=== PATIENT | male | born 1940 | race Caucasian/White ===

== ENCOUNTER 2021-08-25 19:47 | Inpatient (IN) ==
--- NOTE | 2021-08-25 19:50 | ED.PDOC ---
General ED Provider: Dr. KALEIGH LOPEZ Chief Complaint: Altered Mental Status Stated Complaint: From shelter, DNR, his provider there is Dr. Montoya. He has had some fever there, some cough, confusion, they did a COVID test at [facility] today, negative. He has dementia and chronic A-fib hx Time Seen by Provider: 08/25/21 19:50 Mode of Arrival: Ambulance Information Source: Patient and Family (daughter) Exam Limitations: Clinical condition and Dementia [facility] and Triage Documentation Reviewed and Agree: Yes Does patient meet sepsis criteria?: No System Inflammatory Response Syndrome: Not Applicable Sepsis Protocol: For patient's 13 years and over: Temp is 96.8 and below OR 101 and greater Pulse >90 BPM Resp >20/minute Acutely Altered Mental Status Are patient's symptoms suggestive of a new infection, such as: -Pneumonia -Skin, Soft Tissue -Endocarditis -UTI -Bone, Joint Infection -Implantable Device -Acute Abdominal Infection -Wound Infection -Meningitis -Blood Stream Catheter Infection -Unknown Neurological Complaint Exam Altered Mental Status Complaint/Exam Current Mental Status: Confusion Last Known Well: at his baseline , which includes dementia, yesterday Onset: Gradual Duration: one day Symptoms Are: Still present Timing: Constant Initial Severity: Moderate Current Severity: Moderate Eye Deviation Present: No Character: Reports Confusion Aggravating: Reports Unknown Alleviating: Reports None Associated Signs and Symptoms: Reports Fever and Illness Cardiac Risk Factors: Reports Hypertension and Family history CVA Risk Factors: Reports Hypertension Related Surgical History: Reports None Carotid Bruit Present: No Glascow Coma Scale (see protocol): 11 Nystagmus Present: No Gag Reflex Present: Yes Meningeal Signs Positive: No Focal Weakness: Present None Focal Sensory Loss: Present None Gait: Unable Review of Systems Review Of Systems Constitutional: Reports Fever and Malaise Eyes: Reports No symptoms Ears, Nose, Mouth, Throat: Reports No symptoms Respiratory: Reports Cough Cardiac: Reports No symptoms GI: Reports Diarrhea : Reports No symptoms Musculoskeletal: Reports No symptoms Skin: Reports No symptoms Neurological: Reports No symptoms Endocrine: Reports No symptoms Hematologic/Lymphatic: Reports No symptoms All Other Systems: Reviewed and Negative [facility] Medical History (Updated 08/26/21 @ 05:18 by SPENCER RANDHAWA RN) CAD (coronary artery disease) of artery bypass graft Dementia Depression GERD (gastroesophageal reflux disease) Hyperlipemia Hypertension Family History (Updated 08/26/21 @ 05:21 by SPENCER RANDHAWA RN) FATHER Tuberculosis Social History (Updated 08/26/21 @ 05:21 by SPENCER RANDHAWA RN) Smoking and tobacco status: Former smoker Tobacco: How many years used: 20 How long ago did patient quit smokin year ago Physical Exam Physical Exam Appearance: Reports Ill-appearing and Obese Ill-appearing: Moderate Pain Distress: None Eyes: Reports KYLE ENT: Reports Oropharynx normal and Dry mucosa Neck: Supple Respiratory: Reports Airway patent, Breath sounds diminished and Rhonchi Cardiovascular: Reports Irregular rhythm and Tachycardia GI/: Reports Soft and Nontender Musculoskeletal: Reports Limited ROM and Limited strength Skin: Reports Warm and Dry Neurological: Reports Sensation intact, Motor intact and Alert to verbal Psychiatric: Reports Affect appropriate, Mood appropriate and Other (very limi cass exam) Interpretation Radiology Interpretation Radiology Interpretation By: Radiologist Radiology Interpretation By: Radiologist Radiology Results: Positive Exam Interpreted: Portable CXR Xray Comments: Bibas atelec vs infiltrate EKG Interpretation Time of EKG #1: 20:22 Rate: Tachy Rhythm: Other (a-fib) Ectopy: PVCs Thompson: NL ST Segment: Normal Re-Evaluation Re-Evaluation Time of Re-Evaluation: 03:00 Status: Improved Vital Signs Stable: Yes Pain Level: No pain. Lungs: Other (rhonchi) Skin: Warm and Dry Neuro: Other (dementia, confusion) CV: RRR Additional Comments: Kept in ER several hours to hydrate. BUN and creat elevated, lactate elevated which likely represents dehydration, but sepsis cannot be excluded. Cultures, 2 abx, his last episode of diarrhea, just before going to med-surg, was reported to have a bit of blood possibly, will add abd/pel CT to orders for the floor. Critical Care Note Critical Care Note Total Critical Care Time (mins): 30 Comments: CC for acute management of respiratory distress and dehydration Course Course Hematology/Chemistry: 08/25/21 20:31 08/26/21 05:55 Orders, Labs, Meds: Lab Review 08/25/21 08/25/21 08/25/21 20:31 20:31 20:31 WBC 19.32 H RBC 4.79 Hgb 14.9 Hct 43.9 MCV 91.6 MCH 31.1 H MCHC 33.9 RDW Coeff of Keila 14.3 Plt Count 215 Immature Gran % (Auto) 0.4 Neut % (Auto) 91.1 H Lymph % (Auto) 2.3 L Gates % (Auto) 6.0 Eos % (Auto) 0.0 Baso % (Auto) 0.2 Neut # (Auto) 17.6 H Lymph # (Auto) 0.5 L Gates # (Auto) 1.2 Eos # (Auto) 0.0 Baso # (Auto) 0.0 Immature Gran # (Auto) 0.1 Sodium 136.3 Potassium 4.46 Chloride 106.0 Carbon Dioxide 14.5 L Anion Gap 20.26 BUN 72.4 H* Creatinine 2.83 H Estimated GFR (MDRD) 22.00 BUN/Creatinine Ratio 25.58 Glucose 156.8 H Lactic Acid Calcium 9.41 Magnesium 2.13 Total Bilirubin 1.67 H AST 33.5 ALT 23.7 Alkaline Phosphatase 182.8 H Troponin I < 0.012 NT-Pro-B Natriuret Pep 652.000 H Total Protein 6.89 Albumin 3.75 Globulin 3.14 Albumin/Globulin Ratio 1.19 SARS CoV-2 RNA Rapid PARDEEP 08/25/21 08/25/21 08/25/21 22:15 22:48 22:48 WBC RBC Hgb Hct MCV MCH MCHC RDW Coeff of Keila Plt Count Immature Gran % (Auto) Neut % (Auto) Lymph % (Auto) Gates % (Auto) Eos % (Auto) Baso % (Auto) Neut # (Auto) Lymph # (Auto) Gates # (Auto) Eos # (Auto) Baso # (Auto) Immature Gran # (Auto) Sodium 137.7 Potassium 4.07 Chloride 104.0 Carbon Dioxide 17.9 L Anion Gap 19.87 BUN 73.5 H* Creatinine 2.58 H Estimated GFR (MDRD) 24.00 BUN/Creatinine Ratio 28.48 Glucose 135.5 H Lactic Acid 3.30 H Calcium 9.24 Magnesium Total Bilirubin AST ALT Alkaline Phosphatase Troponin I NT-Pro-B Natriuret Pep Total Protein Albumin Globulin Albumin/Globulin Ratio SARS CoV-2 RNA Rapid PARDEEP Negative 08/26/21 08/26/21 03:20 03:20 WBC RBC Hgb Hct MCV MCH MCHC RDW Coeff of Keila Plt Count Immature Gran % (Auto) Neut % (Auto) Lymph % (Auto) Gates % (Auto) Eos % (Auto) Baso % (Auto) Neut # (Auto) Lymph # (Auto) Gates # (Auto) Eos # (Auto) Baso # (Auto) Immature Gran # (Auto) Sodium 136.4 Potassium 4.58 Chloride 104.2 Carbon Dioxide 19.0 L Anion Gap 17.78 BUN 75.9 H* Creatinine 2.47 H Estimated GFR (MDRD) 25.00 BUN/Creatinine Ratio 30.72 Glucose 152.1 H Lactic Acid 2.99 H Calcium 9.07 Magnesium Total Bilirubin AST ALT Alkaline Phosphatase Troponin I NT-Pro-B Natriuret Pep Total Protein Albumin Globulin Albumin/Globulin Ratio SARS CoV-2 RNA Rapid PARDEEP Orders Category Date Time Status ADMIT PATIENT INPATIENT .TO MEDSURG (MONITORED BED) ADMISSION 08/26/21 03:46 Active EKG-(ED ONLY) Stat CARDIO 08/25/21 20:16 Completed ACTIVITY 1-3XD CARE 08/26/21 03:51 Active INTAKE & OUTPUT Q8HR CARE 08/26/21 03:52 Completed IP: INSERT SALINE LOCK ONCE CARE 08/26/21 03:52 Active TELEMETRY MONITORING TELE CARE 08/26/21 03:46 Active VITAL SIGNS Q8HR CARE 08/26/21 03:52 Active CARDIAC DIET DIETARY 08/26/21 Breakfast Ordered BASIC METABOLIC PANEL DAILY@0600 LAB 08/26/21 05:55 Completed BASIC METABOLIC PANEL DAILY@0600 LAB 08/27/21 06:00 Ordered BASIC METABOLIC PANEL Stat LAB 08/25/21 22:48 Completed BASIC METABOLIC PANEL Stat LAB 08/26/21 03:20 Completed BLOOD CULTURE (ED ONLY) Stat LAB 08/25/21 22:48 Received CBC W/ AUTO DIFF DAILY@0600 LAB 08/26/21 05:55 Received CBC W/ AUTO DIFF DAILY@0600 LAB 08/27/21 06:00 Ordered CBC W/ AUTO DIFF Stat LAB 08/25/21 20:31 Completed COMPREHENSIVE METABOLIC PANEL Stat LAB 08/25/21 20:31 Completed LACTIC ACID Stat LAB 08/25/21 22:48 Completed LACTIC ACID Stat LAB 08/26/21 03:20 Completed MAGNESIUM Stat LAB 08/25/21 20:31 Completed NT-PROBNP Stat LAB 08/25/21 20:31 Completed SARS COV-2 RNA RAPID PARDEEP Stat LAB 08/25/21 22:15 Completed TROPONIN I Stat LAB 08/25/21 20:31 Completed Alfuzosin HCl [Uroxatral] MEDS 08/26/21 09:00 Active 10 mg PO DAILY Aspirin [Aspirin EC] MEDS 08/26/21 09:00 Active 81 mg PO DAILY Atorvastatin Calcium [Lipitor] MEDS 08/26/21 21:00 Active 40 mg PO BEDTIME Azithromycin Inj [Zithromax] 500 mg MEDS 08/26/21 03:57 Discontinued 0.9 % Sodium Chloride [Sodium Chloride] 250 ml IV ONCE Ceftriaxone/D5w 1 gm Premix [Rocephin 1 gm/50 ml D5w] MEDS 08/26/21 09:00 Active 1 gm in 50 ml IV DAILY Ceftriaxone/D5w 1 gm Premix [Rocephin 1 gm/50 ml D5w] MEDS 08/25/21 23:31 Discontinued 1 gm in 50 ml IV ONCE Enoxaparin Sodium [Lovenox] MEDS 08/26/21 09:00 Active 40 mg SUBCUT DAILY Furosemide [Lasix Tab] MEDS 08/26/21 09:00 Active 40 mg PO DAILY Mirtazapine [Remeron] MEDS 08/26/21 21:00 Active 7.5 mg PO BEDTIME Nitroglycerin [Nitrostat] MEDS 08/26/21 03:59 Active 0.4 mg SL Q5M PRN Quetiapine Fumarate [Seroquel] MEDS 08/26/21 09:00 Active 12.5 mg PO BID Ringers Lactated Solution [Lactated Ringers] 1,000 ml MEDS 08/25/21 20:17 Discontinued IV BOLUS Ringers Lactated Solution [Lactated Ringers] 1,000 ml MEDS 08/25/21 21:42 Discontinued IV BOLUS Sodium Chloride 0.9% [Sodium Chloride] 1,000 ml MEDS 08/26/21 04:00 Active IV 125 mls/hr Sodium Chloride 0.9% [Sodium Chloride] 1,000 ml MEDS 08/25/21 23:31 Discontinued IV BOLUS RESUSCITATION STATUS Routine OTHERS 08/26/21 03:51 Ordered CHEST, 1V AP ONLY Stat RADS 08/25/21 20:16 Completed Medications Generic Name Dose Route Start Last Admin Trade Name Freq PRN Reason Stop Dose Admin Alfuzosin HCl 10 mg 08/26/21 09:00 Alfuzosin Hcl 10 Mg Tab.Er.24h PO DAILY BRIAN Aspirin 81 mg 08/26/21 09:00 Aspirin 81 Mg Tablet.Dr PO DAILY BRIAN Atorvastatin Calcium 40 mg 08/26/21 21:00 Atorvastatin Calcium 20 Mg Tablet PO BEDTIME BRIAN Enoxaparin Sodium 40 mg 08/26/21 09:00 Enoxaparin Sodium 40 Mg/0.4 Ml Syr SUBCUT DAILY BRIAN Furosemide 40 mg 08/26/21 09:00 Furosemide 40 Mg Tablet PO DAILY [facility] Sodium Chloride 1,000 mls @ 125 mls/hr 08/26/21 04:00 08/26/21 05:25 Sodium Chloride IV 125 mls/hr .Q8H BRIAN Administration CEFTRIAXONE/D5W 1 GM PREMIX 1 gm in 50 mls @ 75 mls/hr 08/26/21 09:00 Rocephin 1 Gm/50 Ml D5w IV 08/29/21 08:59 DAILY BRIAN Mirtazapine 7.5 mg 08/26/21 21:00 Mirtazapine 15 Mg Tablet PO BEDTIME BRIAN Nitroglycerin 0.4 mg 08/26/21 03:59 Nitroglycerin 0.4 Mg Tab.Subl SL Q5M PRN Chest Pain Quetiapine Fumarate 12.5 mg 08/26/21 09:00 Quetiapine Fumarate 25 Mg Tablet PO BID BRIAN Discontinued Medications Generic Name Dose Route Start Last Admin Trade Name Freq PRN Reason Stop Dose Admin Lactated Ringer's 1,000 mls @ 1,000 mls/hr 08/25/21 20:17 08/25/21 20:23 Lactated Ringers IV 08/25/21 21:16 1,000 mls/hr BOLUS STA Administration Lactated Ringer's 1,000 mls @ 1,000 mls/hr 08/25/21 21:42 08/25/21 21:43 Lactated Ringers IV 08/25/21 22:41 1,000 mls/hr BOLUS STA Administration Sodium Chloride 1,000 mls @ 1,000 mls/hr 08/25/21 23:31 08/26/21 01:12 Sodium Chloride IV 08/26/21 00:30 1,000 mls/hr BOLUS STA Administration CEFTRIAXONE/D5W 1 GM PREMIX 1 gm in 50 mls @ 75 mls/hr 08/25/21 23:31 08/25/21 23:43 Rocephin 1 Gm/50 Ml D5w IV 08/26/21 00:10 75 mls/hr ONCE ONE Administration Azithromycin 500 mg/ Sodium 250 mls @ 125 mls/hr 08/26/21 03:57 Chloride IV 08/26/21 05:56 ONCE ONE Vital Signs: Temp Pulse Resp BP Pulse Ox 08/26/21 04:28 120 H 20 103/60 08/25/21 19:52 98.3 F 120 H 20 102/60 97 Discharge Plan Discharge ED Provider: KALEIGH LOPEZ Physician Progress Note: [Multiple problems. DNR patient with dementia. Mild pneumonia , sat good on RA. Elevated WBC from that. Dehydrated with BUN in 70's and creat in 2 plus range. Lactate is elevated, which can be from dehydrdation, but cannot exclude sepsis. Blood cultures pending. Evidently, UA not obtained, add that and CT abd/pel. Hx A-fib, but EKG is sinus. His daughter is here and is advised of all this. Holding BP med and lasix for now until hydrated more and BP is increased.]
[2021-08-25] MEDS ORDERED: LACTATED RINGERS 1,000 ML IV STA ×2 (20:17→21:42)
[2021-08-25 20:36] LABS: BASOPHILS % (AUTO) 0.2 % (0.0-3.0); HEMATOCRIT 43.9 % (42.0-52.0); HEMOGLOBIN 14.9 g/dl (14.0-18.0); IMMATURE GRANULOCYTE # (AUTO) 0.1 (0.0-1.0); IMMATURE GRANULOCYTE % (AUTO) 0.4 % (0.0-5.0); LYMPHOCYTES # (AUTO) 0.5 K/uL (0.60-3.4); LYMPHOCYTES % (AUTO) 2.3 (10.0-50.0); MEAN CORPUSCULAR HEMOGLOBIN 31.1 pg (27.0-31.0); MEAN CORPUSCULAR HGB CONC 33.9 (31.8-35.4); MEAN CORPUSCULAR VOLUME 91.6 fl (80.0-94.0); MONOCYTES # (AUTO) 1.2 K/uL (0.4-2.0); NEUTROPHILS # (AUTO) 17.6 K/ul (2.0-6.9); NEUTROPHILS % (AUTO) 91.1 % (42.2-75.2); PLATELET COUNT 215 10^3/uL (140-440); RDW COEFFICIENT OF VARIATION 14.3 % (11.6-14.8); RED BLOOD COUNT 4.79 10^6/ul (4.70-6.10); WHITE BLOOD COUNT 19.32 K/ul (4.2-10.2)
[2021-08-25 20:50] LABS: ALANINE AMINOTRANSFERASE 23.7 U/L (0-50); ALBUMIN 3.75 g/dL (3.5-5.0); ALKALINE PHOSPHATASE 182.8 U/L (56-119); ASPARTATE AMINO TRANSFERASE 33.5 U/L (17-59); BILIRUBIN,TOTAL 1.67 mg/dL (0.2-1.3); CALCIUM 9.41 mg/dL (8.4-10.2); CARBON DIOXIDE 14.5 mmol/L (22-30.0); CREATININE 2.83 mg/dL (0.60-1.10); GLUCOSE 156.8 mg/dL (74-106); MAGNESIUM 2.13 mg/dL (1.6-2.3); POTASSIUM 4.46 mmol/L (3.5-5.1); SODIUM 136.3 mmol/L (134.5-145); TOTAL PROTEIN 6.89 g/dL (6.3-8.2)
[2021-08-25 20:59] LABS: BLOOD UREA NITROGEN 72.4 mg/dL (9-20)
[2021-08-25 21:03] LABS: TROPONIN I < 0.012 ng/ml (0.0000-0.120)
--- NOTE | 2021-08-25 21:28 | DI ---
EXAM: AP chest. HISTORY: Shortness breath and weakness. FINDINGS: The bones are unremarkable. The cardiac silhouette is enlarged. There is a hiatal hernia. The pulmonary vasculature is within normal limits. There is minimal bibasilar atelectasis and/or p neumonia. The lung apices are incompletely visualized secondary to artifact from positioning of the patient's head which limits the exam. There are calcified granulomas. Impression: Bibasilar atelectasis and/or pneumonia. Cardiomegaly. Hiatal hernia.
[2021-08-25 23:05] LABS: CALCIUM 9.24 mg/dL (8.4-10.2); CARBON DIOXIDE 17.9 mmol/L (22-30.0); CREATININE 2.58 mg/dL (0.60-1.10); GLUCOSE 135.5 mg/dL (74-106); POTASSIUM 4.07 mmol/L (3.5-5.1); SODIUM 137.7 mmol/L (134.5-145)
[2021-08-25 23:07] LABS: BLOOD UREA NITROGEN 73.5 mg/dL (9-20)
[2021-08-25] MEDS ORDERED: SODIUM CHLORIDE 1,000 ML IV STA (23:31)
[2021-08-25] MEDS ORDERED: ROCEPHIN 1 GM/50 ML D5W 1 GM/50 ML BAG IV ONE (23:31)
[2021-08-26 03:39] LABS: CALCIUM 9.07 mg/dL (8.4-10.2); CHLORIDE 104.2 mmol/L (98-107); CREATININE 2.47 mg/dL (0.60-1.10); GLUCOSE 152.1 mg/dL (74-106); POTASSIUM 4.58 mmol/L (3.5-5.1); SODIUM 136.4 mmol/L (134.5-145)
[2021-08-26 03:43] LABS: BLOOD UREA NITROGEN 75.9 mg/dL (9-20)
[2021-08-26] MEDS ORDERED: ZITHROMAX 500 MG in SODIUM CHLORIDE 250 ML IV ONE (03:57)
[2021-08-26] MEDS ORDERED: NITROSTAT SL PRN (03:59)
[2021-08-26 05:06] VITALS: BMI 30.8
[2021-08-26] MEDS: SODIUM CHLORIDE 1,000 ML IV SCH ×2 (05:25→16:07)
[2021-08-26 06:01] LABS: HEMATOCRIT 44.1 % (42.0-52.0); HEMOGLOBIN 14.8 g/dl (14.0-18.0); MEAN CORPUSCULAR HEMOGLOBIN 31.1 pg (27.0-31.0); MEAN CORPUSCULAR HGB CONC 33.6 (31.8-35.4); MEAN CORPUSCULAR VOLUME 92.6 fl (80.0-94.0); PLATELET COUNT 197 10^3/uL (140-440); RDW COEFFICIENT OF VARIATION 14.3 % (11.6-14.8); RED BLOOD COUNT 4.76 10^6/ul (4.70-6.10)
[2021-08-26 06:12] LABS: CALCIUM 8.73 mg/dL (8.4-10.2); CHLORIDE 105.2 mmol/L (98-107); CREATININE 2.35 mg/dL (0.60-1.10); GLUCOSE 140.9 mg/dL (74-106); POTASSIUM 4.92 mmol/L (3.5-5.1); SODIUM 137.2 mmol/L (134.5-145)
[2021-08-26 06:16] LABS: BLOOD UREA NITROGEN 78.3 mg/dL (9-20)
[2021-08-26 06:27] LABS: ANISOCYTOSIS NOT PRESENT (NOT PRESENT)
[2021-08-26] MEDS ORDERED: SODIUM CHLORIDE 250 ML IV ONE (06:42)
[2021-08-26] MEDS ORDERED: ASPIRIN EC PO SCH (08:30)
[2021-08-26] MEDS ORDERED: LOVENOX SUBCUT SCH (09:00)
[2021-08-26] MEDS ORDERED: LASIX TAB PO SCH (09:00)
[2021-08-26] MEDS ORDERED: UROXATRAL PO SCH (09:00)
[2021-08-26] MEDS ORDERED: SEROQUEL PO SCH (09:00)
--- NOTE | 2021-08-26 09:30 | CT ---
EXAM: CT abdomen pelvis without intravenous contrast 08/26/2021. Sagittal and coronal reformatted i mages obtained HISTORY: Abdominal pain COMPARISON: 09/13/2020 FINDINGS: Bibasilar atelectasis and/or pneumonia. Moderate sized hiatal hernia. The liver shows no acute abnormality. Chronic calcification of the gallbladder fundus. The adrenal glands and kidneys show no acute abnormality. Benign-appearing renal cysts. No hydronep hrosis. The spleen and pancreas show no acute abnormality. Air-fluid levels throughout small bowel and proximal colon suggestive of enteritis/ileus. Mild mucos al thickening extends through the descending colon, sigmoid colon and rectum. This likely represents colitis/proctitis. Presacral edema is present. Upper normal thickness of the urinary bladder wall with enlarged prostate gland. This may relate to cystitis versus chronic bladder outlet obstruction. IMPRESSION: 1. Bibasilar atelectasis and/or pneumonia 2. Moderate sized hiatal hernia. 3. Air-fluid levels of small bowel proximal colon suggesting enteritis and/or ileus. 4. Mucosal thickening of the descending colon, sigmoid colon and rectum. This may represent colitis /proctitis. Presacral edema is present. 5. Upper normal thickness of the urinary bladder wall with enlarged prostate gland. This may repres ent cystitis versus chronic bladder outlet obstruction. 6. Limited examination due to lack of intravenous contrast. All CT scans are performed using dose optimization techniques as appropriate to the performed exam an d include at least one of the following: Automated exposure control, adjustment of the mA and/or kV according t o size, and the use of iterative reconstruction technique.
[2021-08-26] MEDS ORDERED: PROTONIX IV IVP SCH (10:00)
--- NOTE | 2021-08-26 11:58 | PCM.PROG ---
Date Seen by Provider: 08/26/21 Time Seen by Provider: 11:55 Subjective: pt poor historian, nad Objective: Vitals: T=96.5 F, P=122, R=22, NI=285/60, SPO2=92 HEENT: []conjunctiva clear Neck: []supple Lungs: [] clear CVS: []RRR Abdomen: []nondistended Extremities: [] Neurological: []hs dementia Skin: []pink Lab/Tests/Diagnostic Imaging: [] Hb 14.8 ct abd shows ileus w/o obstruction Plan: assess for hemoccult stool, continue Rocephin and zithromax for pneumonia, iv ns hydration, stop lovenox, start cass hosery, add protonix, feed with assistance only care to Dr Vega at 19:00
[2021-08-26 14:59] LABS: OCCULT BLOOD SAMPLE 1 POSITIVE (NEGATIVE); OCCULT BLOOD SAMPLE 2 NO SPECIMEN RECEIVED (NEGATIVE); OCCULT BLOOD SAMPLE 3 NO SPECIMEN RECEIVED (NEGATIVE)
[2021-08-26 15:12] VITALS: BP 102/64; TEMP 96.6
--- NOTE | 2021-08-26 17:22 | PCM.PROG ---
Date Seen by Provider: 08/26/21 Time Seen by Provider: 17:20 Subjective: pt accepted for transfer to [facility] by Dr Hyde for gi bleed and pneumonia Objective: Vitals: T=96.6 F, P=96, R=18, QO=093/64, SPO2=96 HEENT: [] Neck: [] Lungs: [] CVS: [] Abdomen: [] Extremities: [] Neurological: [] Skin: [] Lab/Tests/hemoccult +stool Plan: awaiting bed availability
--- NOTE | 2021-08-26 18:01 | PCM.DC ---
Final Diagnosis: gi bleed, pneumonia Physical Exam Appearance: Ill-appearing Ill-appearing: Mild Pain Distress: Mild ENT: Oropharynx normal Neck: Supple Respiratory: Airway patent Cardiovascular: RRR GI/: Soft and Tender (no rebound) Musculoskeletal: Limited ROM Skin: Warm and Dry Neurological: Disoriented Psychiatric: Depressed Reason for Hospitalization: pneumonia and dehydration Prognosis/Condition at Discharge: fair Medications at Discharge: Ambulatory Orders Medication Instructions Recorded acetaminophen 325 mg tablet 650 mg PO Q4H PRN 09/13/20 alfuzosin 10 mg tablet,extended 10 mg PO DAILY 09/13/20 release 24 hr aspirin 81 mg capsule,delayed 81 mg PO DAILY 09/13/20 release atorvastatin 40 mg tablet 40 mg PO BEDTIME 09/13/20 bisacodyl 10 mg rectal suppository 10 mg SC ONCE PRN 09/13/20 clonidine HCl 0.1 mg tablet 0.1 mg PO Q8H PRN 09/13/20 finasteride 5 mg tablet 5 mg PO DAILY 09/13/20 [id number] C-Mn 750 2 tab PO DAILY 09/13/20 mg-600 mg-55 mg-5 mg tablet lidocaine 4 % topical patch 1 patch TOPICAL DAILY 09/13/20 lisinopril 20 mg tablet 20 mg PO DAILY 09/13/20 magnesium hydroxide 400 mg/5 mL 30 ml PO DAILY PRN 09/13/20 oral suspension (Milk of Magnesia) melatonin 5 mg tablet 5 mg PO BEDTIME 09/13/20 mirtazapine 7.5 mg tablet 7.5 mg PO BEDTIME 09/13/20 nitroglycerin 0.4 mg sublingual 0.4 mg SUBLINGUAL Q5M PRN 09/13/20 tablet quetiapine 25 mg tablet (Seroquel) 12.5 mg PO BID 09/13/20 furosemide 40 mg tablet 40 mg PO DAILY 05/11/21 carboxymethylcellulose 1 drp BOTHEYES BID 08/25/21 sod-hypromell 0.25 %-0.3 % eye liquid gel drops omeprazole 20 mg capsule,delayed 20 mg PO DAILY 08/25/21 release sodium phosphates 19 gram-7 118 ml SC DAILY PRN 08/25/21 gram/118 mL enema (Fleet Enema) Lab/Diagnostics: hemoccult +stool, Hb 14.8 Education Provided to Patient and Family: 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
[2021-08-26] MEDS ORDERED: LIPITOR PO SCH (21:00)
[2021-08-26] MEDS ORDERED: ROCEPHIN 1 GM/50 ML D5W 1 GM/50 ML BAG IV SCH (21:00)
[2021-08-26] MEDS ORDERED: REMERON PO SCH (21:00)
[2021-08-27] MEDS ORDERED: ZITHROMAX 500 MG in SODIUM CHLORIDE 250 ML IV SCH (09:00)
== END 2021-08-26 18:02 | DRG 377 ==
LOC: ED 19:47 → MEDSURG A 08-26 04:30
PROVIDERS: ADMIT Emergency Medicine; ATTEND Emergency Medicine Emergency Medical Services
DX: I48.91 Unspecified atrial fibrillation; R06.09 Other forms of dyspnea; R06.03 Acute respiratory distress; R41.82 Altered mental status, unspecified; Z20.822 Contact with and (suspected) exposure to COVID-19; R00.0 Tachycardia, unspecified; K92.2 Gastrointestinal hemorrhage, unspecified; E86.0 Dehydration; Z66 Do not resuscitate; K56.7 Ileus, unspecified; J18.9 Pneumonia, unspecified organism; K92.1 Melena; Z79.82 Long term (current) use of aspirin; Z51.81 Encounter for therapeutic drug level monitoring; Z79.899 Other long term (current) drug therapy